=== PATIENT | female | born 1940 | race Caucasian/White ===

== ENCOUNTER → 2016-06-05 | Outpatient (CLI) | payer MEDICARE ==
[~2016-06-05] MED LIST: ACETAMINOPHEN PO; AMBIEN PO; AMBIEN10 MG PO; ASPIRIN PO; ASPIRIN81 M2 PO; BLOOD PRESSURE MED PO; CALCIUM 600 +1 EAC4 PO; COREG CR 10MG10 MG PO; COREG CR10 M1 PO; DICLOFENAC-MIS1 EAC2 PO; FLONASE 0.05% N16 G1; FLONASE16 GM; FOSAMAX PO; GREEN TEA1 CAP PO; HYDROCHLOROTH12.5 MG PO; IRON1 TAB PO; LEVOTHYROXINE PO; LEVOTHYROXINE75 MC1; LEVOXYL; LEXAPRO PO; LIPITOR40 MG PO; LISINOPRIL PO; LISINOPRIL20 MG PO; LORTAB 7.5-5001 TAB PO; LOVAZA1 G PO; MEGA RED PO; MICROZIDE12.5 M1 PO; MOBIC PO; MULTI VITAMIN1 EACH PO; MULTI-DAY1 TAB PO; NASONEX17 GM; NATURAL VITA400 UNI2 PO; NEXIUM PO; PANTOPRAZOLE SO40 MG PO; PRINIVIL20 M1 PO; PRINIVIL40 MG PO; PRISTIQ50 MG PO; PROLIA60 MG/1 ML SQ; SYNTHROID0.1 MG; SYNTHROID0.1 MG PO; SYNTHROID75 MCG PO; TRAMADOL HCL50 M1 PO; TRAMADOL HCL50 M2 PO; VIT E PO; VITAMIN D1000 UNI2 PO; ZANAFLEX PO; ZANAFLEX2 M1 PO; ZANAFLEX2 MG PO; ZANAFLEX6 MG PO; ZESTORETIC 20/21 TAB PO; ZESTRIL40 MG PO; ZETIA PO
== END | disposition home or self-care (01) ==
LOC: CSSDAY 14:02
DX: M81.0 Age-related osteoporosis without current pathological fracture (principal); Z79.899 Other long term (current) drug therapy
CPT/HCPCS: 82310; 96372; J0897